=== PATIENT | female | born 1955 | race Caucasian/White ===

== ENCOUNTER 2018-12-20 07:33 | Day surgery (SDC) | payer OTHER ==
[~2018-12-20] VITALS: Ht 175.3 cm; Wt 115.1 kg
[~2018-12-20 07:33] MED LIST: Advil200 M1 PO; CIPR500 PO; LEVSOD25 PO; METR59TL; OXYACE5T PO; RXOXYACE PO; TUMS500 MG PO
== END 2018-12-20 10:01 | disposition home or self-care (01) ==
LOC: ORSCSDS 07:33
PROVIDERS: Internal Medicine Gastroenterology
PROC: 0DBM8ZX Excision of Descending Colon, Via Natural or Artificial Opening Endoscopic, Diagnostic (ICD-10-PCS; principal; 2018-12-20 09:00)
PROC: 0DBK8ZX Excision of Ascending Colon, Via Natural or Artificial Opening Endoscopic, Diagnostic (ICD-10-PCS; principal; 2018-12-20 09:00)
DX: Z12.11 Encounter for screening for malignant neoplasm of colon (principal); D12.4 Benign neoplasm of descending colon; D12.2 Benign neoplasm of ascending colon; K57.30 Diverticulosis of large intestine without perforation or abscess without bleeding; E66.9 Obesity, unspecified; Z68.38 Body mass index [BMI] 38.0-38.9, adult
CPT/HCPCS: 88305; J0461; J1980; J2405; J2704; J7120

== ENCOUNTER 2019-03-19 21:23 | Observation (INO) | payer OTHER ==
[~2019-03-19] VITALS: Ht 175.3 cm; Wt 115.2 kg
[2019-03-19 21:49] LABS: BASOPHILS ABSOLUTE AUTO 0.04 K/mm3 (0.00-0.23); BASOPHILS PERCENT AUTO 1 % (0-2); EOSINOPHILS ABSOLUTE AUTO 0.12 K/mm3 (0.00-0.68); EOSINOPHILS PERCENT AUTO 2 % (0-6); Hemoglobin 14.3 g/dL (11.5-16.0); IMMATURE GRAN ABSOLUTE AUTO 0.02 K/mm3 (0.00-0.10); IMMATURE GRAN PERCENT AUTO 0 % (0-1); LYMPHOCYTES ABSOLUTE AUTO 2.34 K/mm3 (0.84-5.20); LYMPHOCYTES PERCENT AUTO 30 % (21-46); MONOCYTES ABSOLUTE AUTO 0.75 K/mm3 (0.16-1.47); MONOCYTES PERCENT AUTO 10 % (4-13); Mean Corpuscular HGB 29.6 pg (26.0-34.0); Mean Corpuscular HGB Conc 31.8 g/dL (31.5-36.5); Mean Corpuscular Volume 93 fL (80-100); NEUTROPHILS ABSOLUTE AUTO 4.53 K/mm3 (1.96-9.15); NEUTROPHILS PERCENT AUTO 58 % (41-73); Platelet Count 267 K/mm3 (150-400); RDW Coefficient Variation 12.4 % (11.7-14.2); RDW Standard Deviation 42.7 fL (35.1-46.3); Red Blood Cell Count 4.83 M/mm3 (3.80-5.20)
[2019-03-19 22:03] LABS: Alanine Aminotransfer (ALT/SGP 23 U/L (12-78); Albumin/Globulin Ratio 1.1 (0.8-1.8); Alk Phos 116 U/L (50-136); Anion Gap 5 mmol/L (6-16); Aspartate Aminotrans (AST/SGOT 18 U/L (12-37); Bilirubin, Total 0.5 mg/dL (0.1-1.0); Blood Urea Nitrogen 15 mg/dL (8-24); Bun/Creatinine Ratio 14.7 (12.0-20.0); CO2, Blood 30 mmol/L (21-32); Calcium, Blood 9.1 mg/dL (8.5-10.1); Chloride, Blood 108 mmol/L (98-108); Creatinine, Blood 1.02 mg/dL (0.40-1.00); Globulin, Blood 3.7 g/dL (2.2-4.0); Glomerular Filtration Rate 58 (60-); Glucose, Blood 91 mg/dL (70-99); Potassium, Blood 3.7 mmol/L (3.5-5.5); Sodium, Blood 143 mmol/L (136-145); Total Protein, Blood 7.7 g/dL (6.4-8.2); Troponin I <0.015 ng/mL (0.000-0.040)
--- NOTE | 2019-03-20 04:04 | NUR ---
SHIFT SUMMARY: PATIENT ARRIVED TO [facility]8 AT APPROX 0130 VIA GURNEY FROM ER. PATIENT ALERT AND ORIENTED, INDEPENDENT WITH AMBULATION (NO LIGHTHEADED SENSATION OR SOB), SKIN C/D/I. PATIENT ORIENTED TO ROOM, CALL LIGHT AND HOSPITAL POLICIES, ADMISSION COMPLETED. VSS, CALL LIGHT WITHIN REACH AND PATIENT EDUCATED ON HEPARIN AND ANGINA.
[2019-03-20 05:41] LABS: Hemoglobin 12.5 g/dL (11.5-16.0); Mean Corpuscular HGB Conc 32.1 g/dL (31.5-36.5); Mean Corpuscular Volume 94 fL (80-100); Mean Platelet Volume 10.9 fL (9.1-12.4); Platelet Count 239 K/mm3 (150-400); RDW Coefficient Variation 12.5 % (11.7-14.2); RDW Standard Deviation 43.3 fL (35.1-46.3); Red Blood Cell Count 4.17 M/mm3 (3.80-5.20); White Blood Cell Count 6.03 K/mm3 (4.00-11.30)
[2019-03-20 06:02] LABS: Alanine Aminotransfer (ALT/SGP 18 U/L (12-78); Albumin, Blood 3.4 g/dL (3.4-5.0); Albumin/Globulin Ratio 1.1 (0.8-1.8); Alk Phos 99 U/L (50-136); Anion Gap 3 mmol/L (6-16); Aspartate Aminotrans (AST/SGOT 12 U/L (12-37); Bilirubin, Total 0.6 mg/dL (0.1-1.0); Blood Urea Nitrogen 14 mg/dL (8-24); Bun/Creatinine Ratio 14.7 (12.0-20.0); CO2, Blood 27 mmol/L (21-32); Calcium, Blood 8.6 mg/dL (8.5-10.1); Chloride, Blood 111 mmol/L (98-108); Creatinine, Blood 0.95 mg/dL (0.40-1.00); Glomerular Filtration Rate >60 (60-); Glucose, Blood 89 mg/dL (70-99); Potassium, Blood 3.8 mmol/L (3.5-5.5); Sodium, Blood 141 mmol/L (136-145); Total Protein, Blood 6.4 g/dL (6.4-8.2)
[2019-03-20 06:05] LABS: CPK Creatine Kinase 82 U/L (26-193); Troponin I <0.015 ng/mL (0.000-0.040)
--- NOTE | 2019-03-20 08:19 | NUR ---
The pt states that she has been having chest pressure which she describes as a dull ache, in the lower sternum/epigastric area, rated 2-3/10. States that at home she was having this pain which would increase to 4-5/10 with activity of unloading her car, going up stairs or riding her bike. States that the bike riding really gave her pain and was also associated with difficulty breathing. She states that she feels right now that the breathing feels like she cannot take a really deep breath, as if she has a bad chest cold. She has no apparent diaphoresis, dyspnea at this time. Vital signs are stable.
--- NOTE | 2019-03-20 10:01 | NUR ---
Dr Ann paged to assure that cardiology consultation request was received.
[2019-03-20 14:12] LABS: CHOL/HDL RATIO 4.2; Cholesterol 208 mg/dL (50-200); HDL Cholesterol 49 mg/dL (>39); LDL/HDL RATIO 2.9; Low Density Lipoprotein Chol 140 mg/dL (0-110); Triglycerides 96 mg/dL (30-160); Very Low Density Lipoprot Chol 19 mg/dL (6-32)
--- NOTE | 2019-03-20 14:26 | NUR ---
The pt was taken to the lab coordinator.
--- NOTE | 2019-03-20 15:23 | NUR ---
The pt returned from the prosthetics lab technician; Right radial arterial access site visualized upon arrival, and noted to be without any bleeding, swelling, or hematoma. Small amount of bruising noted directly underneath the TR band. Pt states that she has some soreness, but that she does not have numbness/tingling or pain in her right hand nor in her right arm. States soreness is at the site of the TR band. TR band noted in place, and written record shows 10 cc inflated at 1500. Kimmy here from the heart center to do an echocardiogram at this time. Vital signs taken, documented. Will continue to check vital signs and right radial artery access site every 15 minutes x 4. Awaiting written orders from Dr Ann. The pt has a Normal Saline drip running into the left AC IV which came with her from the prosthetics lab technician.
--- NOTE | 2019-03-20 17:11 | NUR ---
Since arrival from the heart center, the pt has been cheerful, pleasant and states that her chest discomfort is completely gone. She has been out of bed and ambulated to the bathroom without any dicomfort, pain, or difficulty breathing. Ate lunch with a very good appetite and has been drinking water which she was encouraged to do. Voiding in the bathroom without difficulty.
--- NOTE | 2019-03-20 18:10 | NUR ---
2 cc air removed from the TR band; the pt states that her wrist felt more comfortable afterwards. No changes since prior assessment to the right radial access site.
--- NOTE | 2019-03-20 18:48 | NUR ---
Total of 5 cc air have been removed from the TR band so far. Site remains stable.
--- NOTE | 2019-03-21 03:45 | NUR ---
SHIFT SUMMARY: PATIENT TR BAND RECOVERD FULLY AT APPROX 2200 03/20/19 PER MD ORDERS. OCCLUSIVE DRESSING IN PLACE ALONG WITH WRIST BRACE. SITE IS WNL, NO SIGN OF BLEEDING OR INCREASING BRUSING. ALL SENSATIONS INTACT, CAPILLARY REFILL <3 SECONDS. BP HIGH AT THE BEFINNING OF SHIFT AND PRN MEDICATION GIVEN PER MD ORDER WITH NO EFFECT. BP STARTED TO TREND BACK TO NORMAL AFTER ADMINISTRATION OF PATIENT SCHEDULED ORAL MEDICATION. ALL OTHER VSS, PATIENT RESTING WELL, CALL LIGHT WITHIN REACH, BED LOW AND LOCKED
--- NOTE | 2019-03-21 07:43 | NUR ---
Brooke states that her chest discomfort from yesterday remains resolved, and that the difficulty breathing she described as like having a bad chest cold is also better. States she feels that she hasn't been drinking enough water. Right wrist radial access site is WNL, and she states that the soreness from yesterday is also much better. She hopes to go home today.
[2019-03-21] MEDS ORDERED: ASPI81CH PO ×2 (12:33→12:46)
[2019-03-21] MEDS ORDERED: ATOR80 PO (12:34)
[2019-03-21] MEDS ORDERED: CLOP75 PO (12:35)
[2019-03-21] MEDS ORDERED: METO25 PO (12:36)
[2019-03-21] MEDS ORDERED: NITR.4SL SL (12:44)
[2019-03-21] MEDS ORDERED: Aspir 8181 MG PO (12:50)
== END 2019-03-21 13:28 | disposition home or self-care (01) ==
LOC: ER 21:23 → PCU 21:24
PROVIDERS: Emergency Medicine; Internal Medicine; ADMIT Internal Medicine
DX: I25.110 Atherosclerotic heart disease of native coronary artery with unstable angina pectoris (principal); I10 Essential (primary) hypertension; E03.9 Hypothyroidism, unspecified; E78.5 Hyperlipidemia, unspecified; E66.9 Obesity, unspecified; Z68.38 Body mass index [BMI] 38.0-38.9, adult; Z82.49 Family history of ischemic heart disease and other diseases of the circulatory system; Z95.5 Presence of coronary angioplasty implant and graft
CPT/HCPCS: 36415; 71046; 80053; 80061; 82550; 83690; 83880; 84484; 85025; 85027; 85347; 85730; 92978; 93005; 93010; 93306; 93454; 93571; 96374; 96376; 99152; 99153; 99285-25; C1725; C1753; C1769; C1874; C1887; C1894; C9600; G0378; J0360; J1644; J2250; J3010; J7030; Q9967

== ENCOUNTER 2019-04-15 05:55 | Day surgery (SDC) | payer OTHER ==
--- NOTE | 2019-04-14 07:48 | NUR ---
DR WRIGHT IN TO SPEAK WITH PT WILL BE RESCHEDULED FOR TOMORROW 04/15/19 @ 0700. PT VERBALIZES UNDERSTANDING.
[~2019-04-15] VITALS: Ht 175.3 cm; Wt 111.0 kg
[~2019-04-15 05:55] MED LIST changes: +ASPI81CH PO; +ATOR80 PO; +Aspir 8181 MG PO; +CLOP75 PO; +METO25 PO; +NITR.4SL SL
[2019-04-15] MEDS ORDERED: ASPI325 PO (06:28)
[2019-04-15] MEDS ORDERED: Isosorbide Mono30 MG PO (06:30)
[2019-04-15] MEDS ORDERED: AMLO10 PO (06:31)
--- NOTE | 2019-04-15 08:36 | NUR ---
PT TO RECOVERY IN A RECLINER POST PROCEDURE. PT AWAKE AND ORIENTED, DENIES CHEST PAIN/PRESSURE, SOB OR NAUSEA. MONITOR SB 50'S, B/P 141/78, SPO2 98% RA. R RADIAL SITE NO SWELLING/HEMATOMA, TR BAND IN PLACE. PT TAKING SIPS OF H2O WITHOUT PROBLEM. PT'S FAMILY AT BEDSIDE, ATTENTIVE.
--- NOTE | 2019-04-15 10:15 | NUR ---
PT AMBULATES TO AND FROM RESTROOM WITHOUT DIFF. VSS. NADN. R RADIAL TR BAND REMAINS IN PLACE. NO BLEEDING OR HEMATOMA NOTED. CALL LIGHT WITHIN REACH. FAMILY AT BEDSIDE.
--- NOTE | 2019-04-15 12:35 | NUR ---
TR BAND FULLY DEFLATED BY Mimi LYNCH RN.
--- NOTE | 2019-04-15 12:56 | NUR ---
PT WITH OOZING FROM R RADIAL SITE, SOFT, NO SWELLING/HEMATOMA. TR BAND REMAINS IN PLACE-5 CC AIR INSTILLED-OOZING RESOLVED.
--- NOTE | 2019-04-15 14:35 | NUR ---
PT AMB TO BATHRROM WITHOUT ISSUE-SITE UNCHANGED. PT DRESSED SELF WITH ASSISTANCE FROM FAMILY-SITE REMAINS UNCHANGED. TR BAND REMOVED, CLOTH DOT APPLIED OVER INCISION WITH WRIST IMMOBILIZER. IV REMOVED-CANNULA INTACT. PT AND FAMILY RECEIVED DISCHARGE INSTRUCTIONS, MED LIST AND AFTER CARE INSTRUCTIONS; VERBALIZED GOOD UNDERSTANDING.
--- NOTE | 2019-04-15 14:40 | NUR ---
PT LEFT FACILITY VIA W/C WITH FAMILY, CONDITION STABLE.
== END 2019-04-15 14:40 | disposition home or self-care (01) ==
LOC: ORSCMMR 05:55 → MHTC 05:55
PROC: B211YZZ Fluoroscopy of Multiple Coronary Arteries using Other Contrast (ICD-10-PCS; principal; 2019-04-15)
PROC: 4A023N7 Measurement of Cardiac Sampling and Pressure, Left Heart, Percutaneous Approach (ICD-10-PCS; principal; 2019-04-15)
PROC: B215YZZ Fluoroscopy of Left Heart using Other Contrast (ICD-10-PCS; principal; 2019-04-15)
DX: I25.110 Atherosclerotic heart disease of native coronary artery with unstable angina pectoris (principal); I10 Essential (primary) hypertension; E03.9 Hypothyroidism, unspecified; E78.5 Hyperlipidemia, unspecified; E66.9 Obesity, unspecified; Z79.82 Long term (current) use of aspirin; Z68.36 Body mass index [BMI] 36.0-36.9, adult; Z82.49 Family history of ischemic heart disease and other diseases of the circulatory system; Z95.5 Presence of coronary angioplasty implant and graft
CPT/HCPCS: 85347; 92920; 93454; 93571; 99152; 99153; C1725; C1769; C1887; C1894; J1644; J2250; J3010; J7030; Q9967

== ENCOUNTER 2020-09-02 20:54 | Emergency (ER) | payer OTHER ==
[~2020-09-02] VITALS: Ht 175.3 cm; Wt 108.9 kg
[~2020-09-02 20:54] MED LIST changes: +AMLO10 PO; +ASPI325 PO; +Isosorbide Mono30 MG PO
== END 2020-09-02 21:56 | disposition home or self-care (01) ==
LOC: ER 20:54
DX: S40.261A Insect bite (nonvenomous) of right shoulder, initial encounter (principal); Z79.899 Other long term (current) drug therapy; Z79.82 Long term (current) use of aspirin; Z79.02 Long term (current) use of antithrombotics/antiplatelets; W57.XXXA Bitten or stung by nonvenomous insect and other nonvenomous arthropods, initial encounter
CPT/HCPCS: 99282; A9270

== ENCOUNTER 2023-05-23 12:10 | Emergency (ER) | payer OTHER ==
[~2023-05-23] VITALS: Ht 175.3 cm; Wt 121.1 kg
[2023-05-23 12:46] LABS: BASOPHILS ABSOLUTE AUTO 0.04 K/mm3 (0.00-0.23); BASOPHILS PERCENT AUTO 1 % (0-2); EOSINOPHILS ABSOLUTE AUTO 0.11 K/mm3 (0.00-0.68); EOSINOPHILS PERCENT AUTO 2 % (0-6); Hematocrit 42.3 % (33.0-51.0); Hemoglobin 14.1 g/dL (11.5-16.0); IMMATURE GRAN ABSOLUTE AUTO 0.02 K/mm3 (0.00-0.10); IMMATURE GRAN PERCENT AUTO 0 % (0-1); LYMPHOCYTES ABSOLUTE AUTO 1.61 K/mm3 (0.84-5.20); LYMPHOCYTES PERCENT AUTO 22 % (21-46); MONOCYTES ABSOLUTE AUTO 0.78 K/mm3 (0.16-1.47); MONOCYTES PERCENT AUTO 11 % (4-13); Mean Corpuscular HGB 30.6 pg (26.0-34.0); Mean Corpuscular HGB Conc 33.3 g/dL (31.5-36.5); Mean Corpuscular Volume 92 fL (80-100); Mean Platelet Volume 10.3 fL (9.1-12.4); NEUTROPHILS PERCENT AUTO 66 % (41-73); Platelet Count 285 K/mm3 (150-400); RDW Coefficient Variation 12.1 % (11.7-14.2); RDW Standard Deviation 40.3 fL (35.1-46.3); Red Blood Cell Count 4.61 M/mm3 (3.80-5.20); White Blood Cell Count 7.46 K/mm3 (4.00-11.30)
[2023-05-23 13:13] LABS: Albumin, Blood 3.7 g/dL (3.4-5.0); Bilirubin, Total 0.7 mg/dL (0.1-1.0); Bun/Creatinine Ratio 18.4 (12.0-20.0); Calcium, Blood 9.5 mg/dL (8.5-10.1); Creatinine, Blood 0.87 mg/dL (0.40-1.00); Globulin, Blood 3.7 g/dL (2.2-4.0); Potassium, Blood 4.4 mmol/L (3.5-5.5); Total Protein, Blood 7.4 g/dL (6.4-8.2)
[2023-05-23 13:45] VITALS: BP 145/82
== END 2023-05-23 14:02 | disposition home or self-care (01) ==
LOC: ER 12:10
PROVIDERS: Physician Assistant
DX: R07.89 Other chest pain (principal); I25.10 Atherosclerotic heart disease of native coronary artery without angina pectoris; I10 Essential (primary) hypertension; E78.5 Hyperlipidemia, unspecified; E03.9 Hypothyroidism, unspecified; Z95.5 Presence of coronary angioplasty implant and graft; Z79.82 Long term (current) use of aspirin; Z79.899 Other long term (current) drug therapy
CPT/HCPCS: 71045; 80053; 84484; 85025; 93005; 93010; 99284-25

== ENCOUNTER 2023-11-05 12:51 | Day surgery (SDC) | payer OTHER ==
[~2023-11-05] VITALS: Ht 175.3 cm; Wt 122.1 kg
[~2023-11-05 12:51] MED LIST changes: +Atropine Sulfate 0.1 MG/ML 10ML SYR ONE; +Glycopyrrolate 0.2 MG/ML 1MLVIAL ONE; +Hyoscyamine Sulfate 0.5 MG/ML 1ML Amp ONE; +Lidocaine 2% 5 ML SDV ONE; +Lidocaine HCl/Pf 1% 5 ML VIAL ONE; +Methylene Blue 1% 100 MG/10 ML VIAL ONE; +Ondansetron HCl 2 MG / ML 2ML Vial ONE; +ePHEDrine Sulfate 50 MG/ML 1ML Injection ONE
[2023-11-05] MEDS ORDERED: Lactated Ringer's 1,000 ML IV ONE (13:38)
[2023-11-05] MEDS ORDERED: propofoL 50 ML IV ONE (13:44)
[2023-11-05 15:02] VITALS: BP 117/75
== END 2023-11-05 14:35 | disposition home or self-care (01) ==
LOC: ORSCSDS 12:51
PROVIDERS: Internal Medicine Gastroenterology
PROC: 0DJD8ZZ Inspection of Lower Intestinal Tract, Via Natural or Artificial Opening Endoscopic (ICD-10-PCS; principal; 2023-11-05 14:00)
DX: Z12.11 Encounter for screening for malignant neoplasm of colon (principal); Z86.010 Personal history of colon polyps; K57.30 Diverticulosis of large intestine without perforation or abscess without bleeding; I10 Essential (primary) hypertension; E66.01 Morbid (severe) obesity due to excess calories; Z68.39 Body mass index [BMI] 39.0-39.9, adult; Z79.82 Long term (current) use of aspirin; Z79.899 Other long term (current) drug therapy
CPT/HCPCS: J0461; J1980; J2001; J2405; J2704; J7120; Q9968